=== PATIENT | male | born 1965 | race Caucasian/White ===

== ENCOUNTER 2020-05-06 15:51 | Emergency (ER) | payer MEDICAID, OTHER ==
[~2020-05-06] VITALS: Ht 188 cm; Wt 109.1 kg
[2020-05-06] MEDS ORDERED: ketorolac trometh inj. 60 MG/2 ML VIAL IM ONE (17:00)
[2020-05-06 17:21] VITALS: BP 136/91
[2020-05-06] MEDS ORDERED: HYDR-3965 PO (17:24)
== END 2020-05-06 17:33 | disposition home or self-care (01) ==
LOC: ER 15:52
DX: S40.012A Contusion of left shoulder, initial encounter (principal); S70.02XA Contusion of left hip, initial encounter; F17.200 Nicotine dependence, unspecified, uncomplicated; Z98.890 Other specified postprocedural states; Z56.0 Unemployment, unspecified; Z79.899 Other long term (current) drug therapy; V29.3XXA Motorcycle rider (driver) (passenger) injured in unspecified nontraffic accident, initial encounter; Y93.89 Activity, other specified; Y92.89 Other specified places as the place of occurrence of the external cause; Y99.8 Other external cause status
CPT/HCPCS: 73030; 73502; 96372; 99284; J1885

== ENCOUNTER 2024-01-21 17:51 | Emergency (ER) | payer MEDICAID ==
[~2024-01-21] VITALS: Ht 177.8 cm; Wt 118.2 kg
[2024-01-21 18:08] VITALS: BP 140/96; PULSE 107; RESP 18; TEMP 97.8; O2SAT 98
== END 2024-01-21 21:45 | disposition left against medical advice (07) ==
LOC: ER 17:51
DX: S00.461A Insect bite (nonvenomous) of right ear, initial encounter (principal); R51.9 Headache, unspecified; R11.0 Nausea; Z53.21 Procedure and treatment not carried out due to patient leaving prior to being seen by health care provider; W57.XXXA Bitten or stung by nonvenomous insect and other nonvenomous arthropods, initial encounter; Y93.89 Activity, other specified; Y92.89 Other specified places as the place of occurrence of the external cause; Y99.8 Other external cause status

== ENCOUNTER 2024-03-28 07:45 | Outpatient (CLI) | payer OTHER | END 2024-03-28 23:59 | disposition home or self-care (01) | LOC: MRI 07:45 | PROVIDERS: ATTEND Chiropractor | DX: S52.612K Displaced fracture of left ulna styloid process, subsequent encounter for closed fracture with nonunion (principal); M65.842 Other synovitis and tenosynovitis, left hand; Z98.890 Other specified postprocedural states; M25.532 Pain in left wrist; X58.XXXA Exposure to other specified factors, initial encounter; Y93.89 Activity, other specified; Y92.89 Other specified places as the place of occurrence of the external cause; Y99.8 Other external cause status | CPT/HCPCS: 73218 ==